=== PATIENT | male | born 1930 | race Caucasian/White ===

== ENCOUNTER → 2017-02-03 | Outpatient (CLI) | payer MEDICARE, OTHER ==
--- NOTE | 2017-02-03 14:33 | RADRPT ---
PROCEDURE: Knee radiographs CLINICAL INDICATION: Knee pain. COMPARISON: None relevant listed. TECHNIQUE: AP, lateral, and sunrise view of the right knee. FINDINGS: No acute fracture. No destructive bone lesion. Alignment is anatomic. Mild medial lateral compartment joint space narrowing. Marked patellofemoral compartment joint space narrowing with bone on bone contact, subchondral scler osis, and marginal osteophytes. Fragmented enthesophyte near of the talar tendon attachment to the tibia, which may be sequela of ol d injury. No joint effusion. Arterial calcifications. IMPRESSION: 1. Marked patellofemoral compartment osteoarthropathy. 2. Degenerative changes at the patellar tendon attachment to the tibia. RPTAT: PP Physician Deshawn Date Time Electronically viewed and signed by Physician Deshawn on 02/03/2017 14:32 LG/
--- NOTE | 2017-02-25 00:04 | HKNOTE ---
DATE OF SERVICE: 02/03/2017 MAIN COMPLAINT: Pain in the right knee. HISTORY OF MAIN COMPLAINT: This is an 86-year-old male who complains of pain in his right knee, which has been present for about 6 months. There has not been any history of injury to the knee. The pain is moderate, but varies and sometimes is slightly worse. He has not had any treatment for the knee so far, other than [id number] anti-inflammatory medications. Patient complains his pain is moderate. The knee does not swell, lock or feel unstable. He walks 3 miles every day (!). The muscles of both legs feel weak, and it is difficult for him to get up from a chair. He does not use a walking aid. He does not have any history of lumbar disc disease, but he does get numbness and tingling in both legs from the knees down. He does not limp. He does not have any shoe lift. He can clip his toenails and tie his shoelaces. PAST ORTHOPEDIC HISTORY: Left knee replacement on August 23, [address] Shafer (Patient does not feel that he has had a good result. He still gets pain in the knee.) PRIOR CORTISONE INTAKE: None. ALCOHOL INTAKE: None. OTHER JOINT PROBLEMS: None. BLOOD TESTS FOR ARTHRITIS: Yes (does not know the results). PRIOR INJURIES TO HIPS AND KNEES: None. WORK STATUS: Patient is retired. He can walk 3 miles every day. PAST MEDICAL HISTORY: 1. Aortic aneurysm. 2. Hypercholesterolemia. 3. Hypothyroid. 4. Hypertension. 5. Was told he has a cardiac murmur. 6. Peripheral neuropathy. PAST SURGICAL HISTORY: Prostatectomy 2002, hernia repair 2001, knee replacement 2016. DRUG ALLERGIES: NONE. MEDICATIONS: 1. Lisinopril. 2. Atorvastatin. 3. Levothyroxine. 4. Metoprolol. 5. Low-dose aspirin. 6. Trazodone. FAMILY HISTORY: Father at 70 of a stroke. Mother at 44 of heart problems. REVIEW OF SYSTEMS: Excess night urination. Numbness in both legs (from neuropathy). HABITS: Patient does not smoke or drink alcoholic beverages. HAND SURGEON: Parmjit Dexter M.D., [address], [address], [place]. PHYSICAL EXAMINATION: GENERAL: Patient is an incredibly youthful 86-year-old male. He walks without support. EXTREMITIES: Hip Examination: Both hips have a full range of motion, without pain. Examination of the right knee: A full range of motion, without pain. No effusion. Moderate crepitus under the patella. Ligaments are all intact and stable. Fairly marked weakness of both of the quadriceps (3.5 out of 4). Examination of the left knee: Midline scar of knee replacement surgery. A full functional range of motion. No pain at the extremes of motion. All ligaments are intact. No external sign of infection or inflammation. Almost identical degree of weakness of the left quadriceps muscle. IMAGING: Plain x-rays of the right knee obtained today at the [facility] were reviewed (3 views). These show severe degenerative changes in the patellofemoral joint and lateral subluxation of the patella. Mild narrowing of the medial and lateral compartments. [id number] erosion of the lateral patellofemoral joint, with osteophytes laterally. DIAGNOSES: 1. 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 2. Secondary muscle weakness. 3. Status post left knee replaced. 4. Peripheral neuropathy. 5. Hypertension. 6. Hypothyroid. 7. Hypercholesterolemia. MANAGEMENT: Patient was advised that he has severe arthritis in his patellofemoral joint and that his main limitations would be squatting or stair-climbing. Patient indeed agrees that those are the very actions that cause him to have pain. Once he gets going on a flat level surface, he can keep going "forever." Patient is advised to avoid stairs and deep squatting. Long distance walking is good for him, as long as he is not on an incline. He was instructed in quadriceps exercises. He declined a formal course of physical therapy (which, in any case, would consist of perhaps 14 sessions and would not help him all that much). Note that we discussed the issue of replacement of the patellofemoral joint, only to advise the patient that there are no really good implants on the market that give predictable results, and I do not recommend it. Dictated By: Luke Bundy MD /lamar/khoa /Document#: [id number] ; LISA SANTIAGO MD [address] [place] [address] [address] [place] [id number]; PARMJIT DEXTER MD [address] [facility] [place] [id number]
== END | disposition home or self-care (01) ==
LOC: HKI 14:02
DX: M17.11 Unilateral primary osteoarthritis, right knee (principal); I10 Essential (primary) hypertension; I71.9 Aortic aneurysm of unspecified site, without rupture; E78.00 Pure hypercholesterolemia, unspecified; E03.9 Hypothyroidism, unspecified; G62.9 Polyneuropathy, unspecified; I34.0 Nonrheumatic mitral (valve) insufficiency; Z96.652 Presence of left artificial knee joint
CPT/HCPCS: 73562; G0463